=== PATIENT | female | born 1960 | race Caucasian/White ===

== ENCOUNTER 2017-04-05 17:28 | Emergency (ER) | payer MEDICARE ==
[2017-04-05] MEDS ORDERED: HYDROcodone/Acetaminophen 10/325 mg Tablet ONE (18:15)
[2017-04-05] MEDS ORDERED: Dexamethasone 4 MG TAB ONE (18:15)
[2017-04-05] MEDS ORDERED: Ibuprofen 800 MG TAB ONE (18:15)
== END 2017-04-05 18:30 | disposition home or self-care (01) ==
LOC: MADERS 17:28
DX: M25.512 Pain in left shoulder (principal); Z79.899 Other long term (current) drug therapy
CPT/HCPCS: 99283; J8540

== ENCOUNTER 2018-10-28 13:24 | Emergency (ER) | payer MEDICARE ==
--- NOTE | 2018-10-28 14:58 | RAD ---
PA CHEST AND RIGHT RIB SERIES: Date: 10/28/18 HISTORY: Injury, right rib pain, right chest pain. FINDINGS/IMPRESSION: The heart size is normal. The aorta is tortuous. The lungs are well expanded without focal areas of c onsolidation, pneumothorax, or pleural effusions. No right-sided rib fracture is seen. POS: [facility]
== END 2018-10-28 15:14 | disposition home or self-care (01) ==
LOC: MADERS 13:24
DX: S20.211A Contusion of right front wall of thorax, initial encounter (principal); S80.212A Abrasion, left knee, initial encounter; M54.6 Pain in thoracic spine; M54.5 Low back pain; B19.20 Unspecified viral hepatitis C without hepatic coma; Z79.899 Other long term (current) drug therapy; V00.131A Fall from skateboard, initial encounter

== ENCOUNTER 2021-04-18 13:57 | Emergency (ER) | payer MEDICARE ==
[2021-04-18] MEDS ORDERED: Boostrix 0.5 ML (Tdap) VIAL ONE (15:25)
== END 2021-04-18 15:00 | disposition home or self-care (01) ==
LOC: MADERS 13:57
DX: T63.301A Toxic effect of unspecified spider venom, accidental (unintentional), initial encounter (principal); Z85.3 Personal history of malignant neoplasm of breast; Z79.899 Other long term (current) drug therapy
CPT/HCPCS: 90471; 90715